=== PATIENT | female | born 1975 | race Two or more races ===

== ENCOUNTER 2017-05-13 09:08 | Emergency (ER) | payer SELFPAY ==
[~2017-05-13] VITALS: Ht 154.9 cm; Wt 86.2 kg
[2017-05-13] MEDS ORDERED: KETOROLAC TROMETH 60MG/2ML VIAL IM ONE (10:15)
[2017-05-13 10:54] VITALS: BP 115/85
[2017-05-13 11:38] LABS: Urine Bilirubin Negative (Negative); Urine Blood TRACE /uL (Negative); Urine Color Yellow (Yellow); Urine Glucose Normal (Normal); Urine Ketone Negative (Negative); Urine Mucus FEW (None Seen); Urine Nitrite Negative (Negative); Urine RBC <1 /hpf (0 - 4); Urine Squamous Epithelial Cell FEW /hpf (<5); Urine Urobilinogen Normal (Negative)
== END 2017-05-13 13:14 | disposition home or self-care (01) ==
LOC: ER 09:08
DX: S46.912A Strain of unspecified muscle, fascia and tendon at shoulder and upper arm level, left arm, initial encounter (principal); X58.XXXA Exposure to other specified factors, initial encounter; Y93.89 Activity, other specified; Y92.89 Other specified places as the place of occurrence of the external cause; Y99.8 Other external cause status
CPT/HCPCS: 73030; 81001; 96372; 99285; J1885